=== PATIENT | female | born 1975 | race Caucasian/White ===

== ENCOUNTER 2016-08-21 21:45 | Emergency (ER) | payer SELFPAY ==
[~2016-08-21] VITALS: Ht 170.2 cm; Wt 94.3 kg
[~2016-08-21 21:45] MED LIST: ZOLP10TA3 PO
[2016-08-21 21:51] VITALS: BP 175/90; PULSE 73; RESP 18; TEMP 97.7; O2SAT 98
--- NOTE | 2016-08-21 22:12 | PD ---
HPI Chief Complaint: Flank/Kidney Pain Time Seen by Provider: 21:57 Travel History International Travel<30 days: No Contact w/Intl Traveler<30days: No Traveled to known affect area: No History of Present Illness HPI This 41-year-old female is complaining of right lower quadrant pain. She says around 8:30 she started having some abdominal cramping and she lay down. The pain got a lot worse when she laid down area she says she has not been able to urinate. She has no history of kidney stone. She had had some right flank pain earlier. She has a history of right ectopic and has had removal of her right ovary and tube. She has had an appendectomy and a cholecystectomy. He says there is no chance of because she has been abstinent recently. She says the pain is quite severe PFSH Past Medical History Anxiety: Yes Depression: Yes Diabetes: No Diminished Hearing: No Gastrointestinal Disorders: Yes (GALLSTONES) Hypertension: Yes Immunizations Current: No : 1 Para: 1 Miscarriage: 0 : 0 Past Surgical History Appendectomy: Yes Cholecystectomy: Yes Tonsillectomy: Yes Social History Alcohol Use: No Tobacco Use: Yes (1 PPD) Substance Use: Yes (regular marijuana use) Allergies-Medications (Allergen,Severity, Reaction): Coded Allergies: Codeine (Verified Allergy, Severe, HIVES, 07/30/14) [place] (Verified Allergy, Severe, HIVES, 07/30/14) Reported Meds & Prescriptions Reported Meds & Active Scripts Active Review of Systems General / Constitutional: No: Fever Eyes: No: Diploplia, Blurred Vision HENT: No: Headaches, Vertigo Cardiovascular: No: Chest Pain or Discomfort, Palpitations Respiratory: No: Cough, Shortness of Breath Gastrointestinal: Positive: Nausea, Abdominal Pain Genitourinary: Positive: Decreased Urinary Output Musculoskeletal: No: Myalgias, Arthralgias Skin: No Rash, No Itching Psychiatric: No: Anxiety Endocrine: No: Heat Intolerance Physical Exam Narrative GENERAL: Patient appears uncomfortable with pain SKIN: Warm and dry. HEAD: Atraumatic. Normocephalic. EYES: Pupils equal and round. No scleral icterus. No injection or drainage. ENT: No nasal bleeding or discharge. Mucous membranes pink and moist. NECK: Trachea midline. No JVD. CARDIOVASCULAR: Regular rate and rhythm. No murmur appreciated. RESPIRATORY: No accessory muscle use. Clear to auscultation. Breath sounds equal bilaterally. GASTROINTESTINAL: Abdomen soft, , nondistended. Hepatic and splenic margins not palpable. He has mild right lower quadrant tenderness without guarding or rigidity Pelvic: There is slight discharge. There is some pain with movement of the cervix and right adnexal tenderness. MUSCULOSKELETAL: No obvious deformities. No clubbing. No cyanosis. No edema. NEUROLOGICAL: Awake and alert. No obvious cranial nerve deficits. Motor grossly within normal limits. Normal speech. PSYCHIATRIC: Appropriate mood and affect; insight and judgment normal. Data Data Last Documented VS Vital Signs Date Time Temp Pulse Resp B/P Pulse Ox O2 Delivery O2 Flow Rate FiO2 08/21/16 21:51 97.7 73 18 175/90 98 Orders Basic Metabolic Panel (Bmp) (08/21/16 22:08) Complete Blood Count With Diff (08/21/16 22:08) Urinalysis - C+S If Indicated (08/21/16 22:08) Ct Abd/Pel W/O Iv Contrast (08/21/16 22:08) Ketorolac Inj (Toradol Inj) (08/21/16 22:15) Ondansetron Inj (Zofran Inj) (08/21/16 22:15) Sodium Chloride 0.9% Flush (Ns Flush) (08/21/16 22:15) Hydromorphone Pf Inj (Dilaudid Pf Inj) (08/21/16 22:15) Ed Urine Pregnancytest Poc (08/21/16 22:08) Sodium Chlor 0.9% 1000 Ml Inj (Ns 1000 M (08/21/16 22:15) Gc And Chlamydia Pcr (08/21/16 23:09) Ceftriaxone Inj (Rocephin Inj) (08/21/16 23:15) Oxycodone-Acetamin 5-325 Mg (Percocet (08/21/16 23:45) Labs Laboratory Tests Test 08/21/16 08/21/16 22:15 23:00 White Blood Count 18.6 TH/MM3 Red Blood Count 4.51 MIL/MM3 Hemoglobin 12.9 GM/DL Hematocrit 38.4 % Mean Corpuscular Volume 85.1 FL Mean Corpuscular Hemoglobin 28.6 PG Mean Corpuscular Hemoglobin 33.7 % Concent Red Cell Distribution Width 14.9 % Platelet Count 373 TH/MM3 Mean Platelet Volume 8.1 FL Neutrophils (%) (Auto) 85.8 % Lymphocytes (%) (Auto) 10.6 % Monocytes (%) (Auto) 2.4 % Eosinophils (%) (Auto) 0.5 % Basophils (%) (Auto) 0.7 % Neutrophils # (Auto) 16.0 TH/MM3 Lymphocytes # (Auto) 2.0 TH/MM3 Monocytes # (Auto) 0.4 TH/MM3 Eosinophils # (Auto) 0.1 TH/MM3 Basophils # (Auto) 0.1 TH/MM3 CBC Comment DIFF FINAL Differential Comment Sodium Level 141 MEQ/L Potassium Level 3.6 MEQ/L Chloride Level 107 MEQ/L Carbon Dioxide Level 26.4 MEQ/L Anion Gap 8 MEQ/L Blood Urea Nitrogen 12 MG/DL Creatinine 0.80 MG/DL Estimat Glomerular Filtration 79 ML/MIN Rate Random Glucose 118 MG/DL Calcium Level 8.6 MG/DL Urine Color YELLOW Urine Turbidity SLIGHT Urine pH 5.5 Urine Specific [facility] 1.028 Urine Protein 30 mg/dL Urine Glucose (UA) NEG mg/dL Urine Ketones TRACE mg/dL Urine Occult Blood SMALL Urine Nitrite NEG Urine Bilirubin NEG Urine Leukocyte Esterase NEG Urine RBC 0-3 /hpf Urine Squamous Epithelial 0-5 /hpf Cells Urine Calcium Oxalate Crystals OCC /hpf Urine Amorphous Sediment MOD Urine Bacteria OCC /hpf Urine Mucus MANY /lpf Microscopic Urinalysis Comment CULT NOT INDICATED MDM Medical Decision Making Medical Screen Exam Complete: Yes Emergency Medical Condition: Yes Medical Record Reviewed: Yes Differential Diagnosis Differential includes renal colic, ovarian cyst, pyelonephritis Narrative Course White count is elevated at 18,000. CT scan shows a hemorrhagic cyst suspected in the right ovary. Otherwise negative. In view of the elevation of the white count I am going to cover the patient with antibiotics. I will give Rocephin now. Diagnosis Primary Impression: Ovarian cyst, right Scripts Hydrocodone-Acetaminophen (Lortab)7.5-325 Mg Tab1 Tab PO Q4H PRN (PAIN) #20 TAB Ref 0 Prov:Juan Manuel Mercedes MD 08/21/16 Doxycycline Hyclate 100 Mg Rng201 Mg PO BID #14 CAP Prov:Juan Manuel Mercedes MD 08/21/16 Disposition: DISCHARGE HOME Condition: Stable Juan Manuel Mercedes MD Aug 21, 2016 22:12
[2016-08-21] MEDS ORDERED: ONDANSETRON HCL 4 MG/2 ML VIAL IVP ONE (22:15)
[2016-08-21] MEDS ORDERED: KETOROLAC TROMETHAMINE 30 MG/ML (IVP) VIAL IVP ONE (22:15)
[2016-08-21] MEDS ORDERED: SODIUM CHLOR 0.9% 1000 ML INJ 1,000 ML IV ONE (22:15)
[2016-08-21] MEDS ORDERED: SODIUM CHLORIDE 0.9% FLUSH 5 ML FLUSH IVF PRN (22:15)
[2016-08-21] MEDS ORDERED: HYDROmorphone HCL PF 1 MG/ML VIAL IVS ONE (22:15)
[2016-08-21 22:37] LABS: POTASSIUM 3.6 MEQ/L (3.5-5.1)
[2016-08-21 22:39] LABS: BASOPHIL # 0.1 TH/MM3 (0-0.2); BASOPHIL % 0.7 % (0.0-2.0); EOSINOPHIL # 0.1 TH/MM3 (0-0.4); EOSINOPHIL % 0.5 % (0.0-4.0); HEMATOCRIT 38.4 % (35.0-46.0); LYMPH % 10.6 % (9.0-44.0); MEAN CELL VOLUME 85.1 FL (80.0-100.0); MEAN CORPUSCULAR HEMOGLOBIN 28.6 PG (27.0-34.0); MEAN CORPUSCULAR HGB CONC 33.7 % (32.0-36.0); MONO % 2.4 % (0.0-8.0); NEUT % 85.8 % (16.0-70.0); PLATELET COUNT 373 TH/MM3 (150-450); RED BLOOD COUNT 4.51 MIL/MM3 (4.00-5.30); RED CELL DISTRIBUTION WIDTH 14.9 % (11.6-17.2); WHITE BLOOD COUNT 18.6 TH/MM3 (4.0-11.0)
[2016-08-21 22:40] LABS: HEMO FLAGS DIFF FINAL
[2016-08-21 22:41] LABS: BICARBONATE 26.4 MEQ/L (21.0-32.0)
--- NOTE | 2016-08-21 23:00 | RADHPO ---
EXAM DATE/TIME: 08/21/2016 22:32 [facility] COMPARISON: No previous studies available for comparison. INDICATIONS : Right side abdominal pain. ORAL CONTRAST: No oral contrast ingested. RADIATION DOSE: 24.80 CTDIvol (mGy) MEDICAL HISTORY : Hypertension. SURGICAL HISTORY : Appendectomy. Cholecystectomy. ENCOUNTER: Initial ACUITY: 1 day PAIN SCALE: 4/10 LOCATION: Right flank TECHNIQUE: Volumetric scanning of the abdomen and pelvis was performed. Using automated exposure control and ad justment of the mA and/or kV according to patient size, radiation dose was kept as low as reasonably achievable to obtain optimal diagnostic quality images. FINDINGS: Patient is status post appendectomy and cholecystectomy. Uterus, left ovary, small bowel, liver, sple en, pancreas, adrenal glands and bilateral kidneys are unremarkable. There is diverticulosis without diverticulitis. There is a 2.9 x 3.6 cm right ovarian mass which demonstrates high attenuation in its dependent portion with a hematocrit level. This is characteristic of a hemorrhagic cyst. The lung ba ses are clear. Osseous structures are intact. CONCLUSION: Hemorrhagic cyst suspected right ovary measuring 3.6 cm. 6 week followup ultrasound recommended to en sure resolution of this finding. Mike Boudreaux MD on August 21, 2016 at 22:53 Board Certified Radiologist. This report was verified electronically.
[2016-08-21] MEDS ORDERED: cefTRIAXone INJ 1,000 MG in SODIUM CHLORIDE 0.9% INJ 100 ML IV ONE (23:15)
[2016-08-21 23:17] LABS: BLOOD, URINE SMALL (NEG); GLUCOSE,URINE NEG (NEG); KETONE, URINE TRACE mg/dL (NEG); NITRITE,URINE NEG (NEG); PH, URINE 5.5 (5.0-8.5)
[2016-08-21 23:24] LABS: MUCUS URINE MANY /lpf (OCC); URINE COLOR YELLOW (YELLW/STRAW)
[2016-08-21 23:25] LABS: SQUAMOUS EPITHELIAL CELL URINE 0-5 /hpf (0-5)
[2016-08-21 23:26] LABS: BACTERIA, URINE OCC /hpf
[2016-08-21 23:27] LABS: CALCIUM OXALATE CRYSTALS,URINE OCC /hpf; COMMENT (UR) CULT NOT INDICATED; CULTURE IF INDICATED CULT NOT INDICATED; RBC, URINE 0-3 /hpf (0-3)
[2016-08-21] MEDS ORDERED: DOXY100C PO (23:42)
[2016-08-21] MEDS ORDERED: HYDR-3534 PO (23:42)
[2016-08-21] MEDS ORDERED: oxyCODONE/ACETAMINOPHEN 5 MG/325 MG TAB PO ONE (23:45)
[2016-08-22 00:11] VITALS: BP 154/88
[2016-08-22 13:42] LABS: CHLAMYDIA PCR NOT DETECTED (NOT DETECT); NEISSERIA PCR NOT DETECTED (NOT DETECT)
== END 2016-08-22 00:14 | disposition home or self-care (01) ==
LOC: PHED 21:45
DX: N83.201 Unspecified ovarian cyst, right side (principal); R10.9 Unspecified abdominal pain; I10 Essential (primary) hypertension; F17.210 Nicotine dependence, cigarettes, uncomplicated; F12.90 Cannabis use, unspecified, uncomplicated
CPT/HCPCS: 74176; 80048; 81001; 85025; 87491; 87591; 96361; 96365; 96375; 99284; J0696; J1170; J1885; J2405; J7030

== ENCOUNTER 2016-12-01 15:21 | Emergency (ER) | payer SELFPAY ==
[~2016-12-01] VITALS: Ht 172.7 cm; Wt 96.8 kg
[~2016-12-01 15:21] MED LIST changes: +DOXY100C PO; +HYDR-3534 PO; -ZOLP10TA3 PO
[2016-12-01 15:24] VITALS: BP 143/74; PULSE 84; RESP 16; TEMP 98.3; O2SAT 96
[2016-12-01] MEDS ORDERED: TETANUS/DIPHTHERIA TOXOID ADULT 0.5 ML VIAL IM ONE (15:45)
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
== END 2016-12-01 16:12 | disposition home or self-care (01) ==
LOC: PHEFT 15:21
DX: S61.412A Laceration without foreign body of left hand, initial encounter (principal); W25.XXXA Contact with sharp glass, initial encounter; Z23 Encounter for immunization
CPT/HCPCS: 12001; 90471; 90714

== ENCOUNTER 2016-12-23 23:08 | Emergency (ER) | payer SELFPAY ==
[~2016-12-23] VITALS: Ht 172.7 cm; Wt 93.0 kg
[2016-12-23 23:19] VITALS: BP 152/91; PULSE 83; RESP 18; TEMP 98.3; O2SAT 99
[2016-12-23] MEDS ORDERED: SODIUM CHLOR 0.9% 1000 ML INJ 1,000 ML IV SCH (23:22)
[2016-12-23] MEDS ORDERED: MORPHINE SULFATE 4 MG/ML INJ IV PUSH ONE (23:30)
[2016-12-23] MEDS ORDERED: SODIUM CHLORIDE 0.9% FLUSH 10 ML FLUSH IV FLUSH PRN (23:30)
[2016-12-23] MEDS ORDERED: ONDANSETRON HCL 4 MG/2 ML VIAL IVP ONE (23:30)
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
[2016-12-23] MEDS ORDERED: MORPHINE SULFATE 8 MG/ML INJ IV PUSH ONE (23:45)
[2016-12-23] MEDS ORDERED: LORazepam 2 MG/ML VIAL IV PUSH ONE (23:45)
[2016-12-23 23:56] LABS: GLUCOSE,URINE NEG (NEG); KETONE, URINE NEG (NEG); NITRITE,URINE NEG (NEG); PH, URINE 5.5 (5.0-8.5)
[2016-12-23 23:58] LABS: AUTOMATED NEUTROPHIL # 8.3 TH/MM3 (1.8-7.7); BASOPHIL % 0.3 % (0.0-2.0); EOSINOPHIL # 0.1 TH/MM3 (0-0.4); EOSINOPHIL % 0.9 % (0.0-4.0); HEMO FLAGS DIFF FINAL; LYMPHOCYTE # 1.6 TH/MM3 (1.0-4.8); MEAN CELL VOLUME 84.6 FL (80.0-100.0); MEAN CORPUSCULAR HEMOGLOBIN 27.1 PG (27.0-34.0); NEUT % 80.8 % (16.0-70.0); PLATELET COUNT 361 TH/MM3 (150-450); RED BLOOD COUNT 4.84 MIL/MM3 (4.00-5.30); RED CELL DISTRIBUTION WIDTH 14.6 % (11.6-17.2); WHITE BLOOD COUNT 10.3 TH/MM3 (4.0-11.0)
[2016-12-24 00:01] LABS: BACTERIA, URINE RARE /hpf; BLOOD, URINE MOD (NEG); COMMENT (UR) CULT NOT INDICATED; CULTURE IF INDICATED CULT NOT INDICATED; URINE COLOR YELLOW (YELLW/STRAW); WBC, URINE 0-2 /hpf (0-5)
[2016-12-24 00:03] LABS: CHLORIDE 109 MEQ/L (98-107); POTASSIUM 3.6 MEQ/L (3.5-5.1); SODIUM (NA) 140 MEQ/L (136-145)
[2016-12-24 00:07] LABS: ANION GAP 8 MEQ/L (5-15); BICARBONATE 22.6 MEQ/L (21.0-32.0); BLOOD UREA NITROGEN 10 MG/DL (7-18)
[2016-12-24 00:10] VITALS: BP 128/52; PULSE 63; RESP 20; O2SAT 98
[2016-12-24 00:10] LABS: ALT (GPT) 21 U/L (10-53); AST (GOT) 12 U/L (15-37); GLOMERULAR FILTRATION RATE 73 ML/MIN (>89)
[2016-12-24 00:11] LABS: TOTAL BILIRUBIN ADULT 0.4 MG/DL (0.2-1.0)
[2016-12-24 00:13] LABS: ALKALINE PHOSPHATASE 97 U/L (45-117)
[2016-12-24] MEDS ORDERED: ZOFR4TAB3 SL (00:41)
[2016-12-24] MEDS ORDERED: ULTR50TA5 PO (00:41)
[2016-12-24 00:58] VITALS: BP 128/74
== END 2016-12-24 01:01 | disposition home or self-care (01) ==
LOC: PHED 23:08
DX: A08.4 Viral intestinal infection, unspecified (principal); F17.210 Nicotine dependence, cigarettes, uncomplicated; I10 Essential (primary) hypertension
CPT/HCPCS: 80053; 81001; 83690; 84703; 85025; 96374; 96375; 99284; J2060; J2405; J7030